=== PATIENT | female | born 1970 | race African-American/Black ===

== ENCOUNTER 2017-08-20 14:45 | Emergency (ER) | payer OTHER ==
[2017-08-20 14:55] VITALS: BP 154/95; PULSE 95; TEMP 98.6; BMI 40.3
[2017-08-20] MEDS ORDERED: ONDANSETRON *ODT* 4 MG TABLET SL ONE (14:56)
--- NOTE | 2017-08-20 14:56 | PDOC ---
Rapid Medical Evaluation Chief Complaint: Allergic Reaction Time Seen by Provider: 08/20/17 14:53 Medical Evaluation: Allergies Allergy/AdvReac Type Severity Reaction Status Date / Time acetaminophen [From Percocet] Allergy Verified 10/24/15 11:49 hydrocodone bitartrate Allergy Verified 10/24/15 11:49 [From Vicodin] oxycodone HCl [From Percocet] Allergy Verified 10/24/15 11:49 08/20/17 14:53 I have performed a brief in-person evaluation of this patient. The patient presents with a chief complaint of: inhalation of "satin wax" today , swelling of lip, nausea, taken cetirizine today, "a little" swelling of throat /tongue Pertinent physical exam findings: well appearing, mild swelling to upper lip, no swelling to tongue/uvula I have ordered the following: everett WALTERS The patient will proceed to the ED for further evaluation. Discharge Disposition - Diagnosis Allergic reaction - Referrals Referrals: Lillian Wallace MD [Primary Care Provider] - - Patient Instructions - Post Discharge Activity
[2017-08-20] MEDS ORDERED: ONDANSETRON *ODT* 4 MG TABLET ONE (15:10)
[2017-08-20] MEDS ORDERED: DEXAMETHASONE 4 MG TABLET (FP) PO ONE (16:15)
--- NOTE | 2017-08-20 16:18 | PDOC ---
History of Present Illness - General Chief Complaint: Allergic Reaction Stated Complaint: INGESTION Time Seen by Provider: 08/20/17 14:53 History Source: Patient Exam Limitations: No Limitations - History of Present Illness Initial Comments: 08/20/17 16:15 46 yr female with c/o cough throat discomfort after inhaling a wax she used for cleaning a table 2 days ago. Pt had some lip swelling which has improved . Pt c/ o cough and wheezing. Pt has DM, HTN, . no sob Past History - Past Medical History Allergies/Adverse Reactions: Allergies Allergy/AdvReac Type Severity Reaction Status Date / Time acetaminophen [From Percocet] Allergy Verified 08/20/17 14:55 hydrocodone bitartrate Allergy Verified 08/20/17 14:55 [From Vicodin] oxycodone HCl [From Percocet] Allergy Verified 08/20/17 14:55 Home Medications: Ambulatory Orders Albuterol Sulfate Inhaler - [Ventolin HFA Inhaler -] 1 - 2 inh PO QID #1 inhaler 08/20/17 Cetirizine HCl 10 mg PO ASDIR 08/20/17 Lisinopril 20 mg PO ASDIR 08/20/17 Metformin HCl 500 mg PO BID 08/20/17 COPD: No Diabetes: Yes HTN: Yes Psychiatric Problems: (depression) - Suicide/Smoking/Psychosocial Hx Smoking Status: No Smoking History: Never smoked Have you smoked in the past 12 months: No Number of Cigarettes Smoked Daily: 0 Information on smoking cessation initiated: No Hx Alcohol Use: No Drug/Substance Use Hx: No Substance Use Type: None Hx Substance Use Treatment: No *Physical Exam - Vital Signs Last Vital Signs Temp Pulse Resp BP Pulse Ox 98.6 F 95 H 19 154/95 100 08/20/17 14:53 08/20/17 14:53 08/20/17 14:53 08/20/17 14:53 08/20/17 14:53 - Physical Exam General Appearance: Yes: Nourished, Appropriately Dressed HEENT: positive: EOMI, DOUG, Normal ENT Inspection, TMs Normal, Pharynx Normal, Rhinorrhea Neck: positive: Supple. negative: Tender, Lymphadenopathy (R), Lymphadenopathy (L), Tender lateral, Tender midline Respiratory/Chest: positive: Lungs Clear, Normal Breath Sounds, Wheezing (exp mild at the apex ). negative: Chest Tender Cardiovascular: positive: Regular Rhythm, Regular Rate Gastrointestinal/Abdominal: positive: Normal Bowel Sounds, Soft Musculoskeletal: positive: Normal Inspection Extremity: positive: Normal Capillary Refill, Normal Inspection, Normal Range of Motion Integumentary: positive: Normal Color, Dry, Warm Neurologic: positive: Fully Oriented, Alert, Normal Mood/Affect, Normal Response , Motor Strength 11/15 ED Treatment Course - Medications Given in the ED: ED Medications Discontinued Medications Generic Name Dose Route Start Last Admin Trade Name Chazq PRN Reason Stop Dose Admin Ondansetron HCl 4 mg 08/20/17 14:56 08/20/17 15:12 Zofran Odt - SL 08/20/17 14:57 4 mg ONCE ONE Administration Medical Decision Making - Medical Decision Making 08/20/17 16:17 cc: sneezing , cough with wheezing after inhaling a wax switch cleaner 2 days ago no fever no vomiting or chest pain no swelling to the uvula or tounge *DC/Admit/Observation/Transfer Diagnosis at time of Disposition: Allergic reaction Qualifiers: Encounter type: initial encounter Qualified Code(s): T78.40XA - Allergy, unspecified, initial encounter - Discharge Dispostion Disposition: HOME Condition at time of disposition: Good - Prescriptions Prescriptions: Albuterol Sulfate Inhaler - [Ventolin HFA Inhaler -] 1 - 2 inh PO QID #1 inhaler - Referrals Referrals: Lillian Wallace MD [Primary Care Provider] - - Patient Instructions Additional Instructions: drink at least 2 liters of water a day use the inhaler as needed every 4hrs continue to take your antihistamine daily follow with the [facility] for any worsening symptoms - Post Discharge Activity
[2017-08-20] MEDS ORDERED: DEXAMETHASONE 4 MG TABLET (FP) ONE (16:21)
[2017-08-20] MEDS ORDERED: ALBUTEROL SO4 0.083% IH SOL 2.5 MG/3 ML VIAL.NEB. NEB ONE ×2 (16:31)
== END 2017-08-20 16:47 | disposition home or self-care (01) ==
LOC: JERFT 14:45
PROC: 3E0F7GC Introduction of Other Therapeutic Substance into Respiratory Tract, Via Natural or Artificial Opening (ICD-10-PCS; principal; 2017-08-20)
DX: T65.891A Toxic effect of other specified substances, accidental (unintentional), initial encounter (principal); R06.2 Wheezing; T78.49XA Other allergy, initial encounter; Y92.038 Other place in apartment as the place of occurrence of the external cause
CPT/HCPCS: 99281-25

== ENCOUNTER 2021-12-05 08:40 | Emergency (ER) | payer OTHER ==
[2021-12-05 08:50] VITALS: BP 168/90; PULSE 84; TEMP 97.7; BMI 34.1
[2021-12-05] MEDS ORDERED: ALBUTEROL SO4 2.5/IPRATROPIUM 0.5 INH SOL 3 ML VIAL.NEB. NEB ONE (09:42)
[2021-12-05] MEDS ORDERED: methylPREDNISolone NA SUCC 125 MG/2 ML VIAL IVPB ONE (09:42)
[2021-12-05] MEDS ORDERED: methylPREDNISolone NA SUCC 125 MG/2 ML VIAL ONE (10:23)
[2021-12-05 11:24] LABS: BASO % 0.6 % (0-2.0); EOS % 0.7 % (0-4.5); HEMATOCRIT 40.5 % (32.4-45.2); HEMOGLOBIN 13.1 GM/dL (10.7-15.3); LYMPH % 43.9 % (8-40); MCH 27.2 pg (25.7-33.7); MCHC 32.4 g/dl (32.0-36.0); MEAN CELL VOLUME 83.8 fl (80-96); MEAN PLT VOLUME 9.5 fl (7.5-11.1); MONO % 6.8 % (3.8-10.2); PLATELET COUNT 307 10^3/uL (134-434); RBC 4.83 M/mm3 (3.60-5.2); RDW 13.8 % (11.6-15.6); WHITE BLOOD COUNT 7.3 K/mm3 (4.0-10.0)
[2021-12-05 11:45] LABS: CALCIUM 10.3 mg/dL (8.5-10.1)
[2021-12-05 11:46] LABS: ALBUMIN 3.8 g/dl (3.4-5.0); BLOOD UREA NITROGEN 19.7 mg/dL (7-18)
[2021-12-05 11:49] LABS: CREATININE 0.8 mg/dL (0.55-1.3)
[2021-12-05 11:50] LABS: BILIRUBIN,TOTAL 0.6 mg/dL (0.2-1); TOT PROT 8.1 g/dl (6.4-8.2)
== END 2021-12-05 12:38 | disposition home or self-care (01) ==
LOC: JERFT 08:40
PROC: 3E0F7GC Introduction of Other Therapeutic Substance into Respiratory Tract, Via Natural or Artificial Opening (ICD-10-PCS; principal; 2021-12-05)
PROC: 3E033NZ Introduction of Analgesics, Hypnotics, Sedatives into Peripheral Vein, Percutaneous Approach (ICD-10-PCS; 2021-12-05)
DX: R05.9 Cough, unspecified (principal)
CPT/HCPCS: 36415; 71046-TC-FY; 80053; 85025; 93005; 93010; 99284-25